=== PATIENT | female | born 1970 ===

== ENCOUNTER 2017-12-25 13:58 | Emergency (ER) | payer SELFPAY ==
[2017-12-25 14:04] VITALS: RESP 18
--- NOTE | 2017-12-25 14:56 | ED PDOC ---
HPI: General Adult Time Seen by Provider: 12/25/17 14:14 Chief Complaint (Nursing): GI Problem Chief Complaint (Provider): Rectal pain x 2 days History Per: Patient History/Exam Limitations: no limitations Onset/Duration Of Symptoms: Days Have you had recent travel within the past 21 days to any of the following countries: [place], [place], [place] or [place]?: No Current Symptoms Are (Timing): Still Present Additional Complaint(s): 47 yo female with history of constipation presents with rectal pain. PT states she had 2 BM in 10 days associated with abdominal discomfort. PT states both the constipation and abdominal discomfort is normal for her. PT states she comes to the ER for evaluation because of rectal pain. Pt states she feels burning in rectal area. No similar in the past. Past Medical History Reviewed: Historical Data, Nursing Documentation, Vital Signs Vital Signs: Last Vital Signs Temp 97.0 F L 12/25/17 14:02 Pulse 75 12/25/17 14:02 Resp 18 12/25/17 14:02 BP 107/70 12/25/17 14:02 Pulse Ox 99 12/25/17 14:02 - Medical History PMH: No Chronic Diseases - Surgical History Surgical History: No Surg Hx - Family History Family History: States: No Known Family Hx - Living Arrangements Living Arrangements: With Family - Home Medications Home Medications: Ambulatory Orders Medication Instructions Recorded Docusate [Colace] 100 mg PO Q12H PRN #10 cap 12/25/17 Hydrocortisone 2.5% (Rectal) 30 applic VT BID #1 tube 12/25/17 [Anusol-HC] - Allergies Allergies/Adverse Reactions: Allergies Allergy/AdvReac Type Severity Reaction Status Date / Time No Known Allergies Allergy Verified 12/25/17 14:02 Review of Systems ROS Statement: Except As Marked, All Systems Reviewed And Found Negative Constitutional: Negative for: Fever, Chills Gastrointestinal: Positive for: Abdominal Pain, Constipation, Rectal Pain Physical Exam - Reviewed Nursing Documentation Reviewed: Yes Vital Signs Reviewed: Yes - Physical Exam Appears: Positive for: Well, Non-toxic, No Acute Distress Head Exam: Positive for: ATRAUMATIC, NORMAL INSPECTION, NORMOCEPHALIC Skin: Positive for: Normal Color, Warm, DRY Eye Exam: Positive for: Normal appearance ENT: Positive for: Normal ENT Inspection Neck: Positive for: Normal, Painless ROM Cardiovascular/Chest: Positive for: Regular Rate, Rhythm Respiratory: Positive for: CNT, Normal Breath Sounds Gastrointestinal/Abdominal: Positive for: Soft. Negative for: Tenderness Back: Positive for: Normal Inspection Rectal: Positive for: Rectal Tone Is:, Hemorrhoids (External, flesh color, soft ) Extremity: Positive for: Normal ROM Neurologic/Psych: Positive for: Alert, Oriented - ECG O2 Sat by Pulse Oximetry: 99 Medical Decision Making Medical Decision Making: Discussed hydration with water. PT states she does not drink much water during the day normally. Disposition - Clinical Impression Clinical Impression: External hemorrhoid - Patient ED Disposition Is Patient to be Admitted: No Counseled Patient/Family Regarding: Diagnosis, Need For Followup, Rx Given - Disposition Disposition: Routine/Home Disposition Time: 14:59 Condition: STABLE Prescriptions: Docusate [Colace] 100 mg PO Q12H PRN #10 cap PRN Reason: Constipation Hydrocortisone 2.5% (Rectal) [Anusol-HC] 30 applic VT BID #1 tube Instructions: Hemorrhoids Forms: [employer] (Japanese)
[2017-12-25 15:33] VITALS: BP 118/67; PULSE 78; TEMP 98; O2SAT 100
== END 2017-12-25 15:38 | disposition home or self-care (01) ==
LOC: H.ER 13:58
DX: K59.00 Constipation, unspecified (principal); K64.8 Other hemorrhoids